=== PATIENT | male | born 1995 | race Caucasian/White ===

== ENCOUNTER 2025-06-01 08:04 | Emergency (ER) | payer SELFPAY ==
[2025-06-01] MEDS ORDERED: Diphtheria,Pertussis(Acell),Tetanus Vaccine 0.5 ML Syringe IM ONE (08:14)
== END 2025-06-01 08:37 | disposition home or self-care (01) ==
LOC: DL.ED 08:04
DX: S61.012A Laceration without foreign body of left thumb without damage to nail, initial encounter (principal); W26.8XXA Contact with other sharp object(s), not elsewhere classified, initial encounter
CPT/HCPCS: 12001; 90471; 93010; 99282-25; 99284